=== PATIENT | male | born 1995 | race Caucasian/White ===

== ENCOUNTER 2017-04-25 13:03 | Emergency (ER) | payer OTHER ==
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
[2017-04-25 14:28] VITALS: BP 140/95; PULSE 75; RESP 18; TEMP 99; O2SAT 97
== END 2017-04-25 14:28 | disposition home or self-care (01) ==
LOC: EDUNIT#
DX: S40.811A Abrasion of right upper arm, initial encounter (principal); V19.60XA Unspecified pedal cyclist injured in collision with unspecified motor vehicles in traffic accident, initial encounter; Y92.410 Unspecified street and highway as the place of occurrence of the external cause; Y93.89 Activity, other specified
CPT/HCPCS: A4565